=== PATIENT | male | born 1970 | race Two or more races ===

== ENCOUNTER 2017-10-20 09:36 | Emergency (ER) | payer SELFPAY ==
[~2017-10-20] VITALS: Ht 157.5 cm; Wt 74.0 kg
[2017-10-20] MEDS ORDERED: IBUPROFEN 800 MG TABLET PO ONE (10:15)
[2017-10-20] MEDS ORDERED: ACETIC ACID 2% 15 ML OTIC SOLUTION AD ONE (10:15)
[2017-10-20] MEDS ORDERED: MINERAL OIL 30 ML UDCUP PO ONE (10:15)
[2017-10-20 11:22] VITALS: BP 117/69
[2017-10-20] MEDS ORDERED: CIPROFLOXACIN HCL 0.3% 2.5 ML OPHTHALMIC SOLUTION AD ONE (11:30)
== END 2017-10-20 12:22 | disposition home or self-care (01) ==
LOC: EMS 09:37
DX: T16.1XXA Foreign body in right ear, initial encounter (principal); X58.XXXA Exposure to other specified factors, initial encounter; Y93.89 Activity, other specified; Y92.89 Other specified places as the place of occurrence of the external cause; Y99.8 Other external cause status
CPT/HCPCS: 99284; Z7610